=== PATIENT | female | born 1950 | race Caucasian/White ===

== ENCOUNTER → 2020-11-07 | Outpatient (CLI) | payer MEDICARE, OTHER ==
[~2020-11-07] MED LIST: CIPRO 500MG TA500 MG PO; PERCOCET 325 MG1 TA2 PO; SENOKOT S 50 MG1 TAB PO; VESICARE10 MG PO
== END ==
LOC: ZCOL.LAB 14:59
DX: Z01.818 Encounter for other preprocedural examination (principal); Z20.828 Contact with and (suspected) exposure to other viral communicable diseases